=== PATIENT | female | born 1960 | race Caucasian/White ===

== ENCOUNTER 2024-10-18 18:55 | Emergency (ER) | payer MEDICARE, OTHER ==
[~2024-10-18] VITALS: Ht 162.6 cm; Wt 81.6 kg
[2024-10-18] MEDS ORDERED: HYDR-4209 PO (20:15)
[2024-10-18 20:22] VITALS: BP 142/88; TEMP 98.2; O2SAT 100
== END 2024-10-18 20:23 | disposition home or self-care (01) ==
LOC: ER 19:02
DX: S82.831A Other fracture of upper and lower end of right fibula, initial encounter for closed fracture (principal); W01.0XXA Fall on same level from slipping, tripping and stumbling without subsequent striking against object, initial encounter; Y93.E9 Activity, other interior property and clothing maintenance; Y92.098 Other place in other non-institutional residence as the place of occurrence of the external cause; Y99.8 Other external cause status
CPT/HCPCS: 73610-TC